=== PATIENT | male | born 1955 | race Caucasian/White ===

== ENCOUNTER 2016-06-15 08:11 | Day surgery (SDC) | payer BC, OTHER ==
--- NOTE | 2016-06-14 14:15 | HP ---
ADMITTING HISTORY AND PHYSICAL: DATE OF ADMISSION: 06/15/16 ADMITTING DIAGNOSES: 1. Bladder lesion. 2. Hematuria. 3. History of superficial bladder cancer. PLANNED PROCEDURE: Transurethral resection of bladder lesion, possible left stent insertion. SURGEON: Dr. Edmondson. ADMITTING HISTORY AND PHYSICAL: Osmin Randall is a 60-year-old gentleman with a longstanding smoking history and a history of superficial transitional cell carcinoma first diagnosed in 2008. Recent cystoscopy revealed a 2 to 3 cm area in the junction of the floor and posterior wall of the bladder with raised, irregular, hyperemic mucosa. The right orifice was visualized and was close to the bladder neck. I could not visualize the left orifice at the time of office cystoscopy. PAST MEDICAL HISTORY: Significant for: 1. Diabetes mellitus. 2. Esophageal reflux. 3. High triglycerides. 4. Hypertension. 5. History of pancreatitis due to alcohol abuse. 6. Sleep apnea. 7. Superficial bladder cancer. MEDICATIONS ON ADMISSION: 1. Amlodipine 10 mg a day. 2. Aspirin 81 mg a day. 3. Clonidine 0.1 mg daily. 4. Nexium 40 mg daily. 5. TriCor 145 mg daily. 6. Hydrochlorothiazide 25 mg daily. 7. Losartan potassium 100 mg daily. 8. Metformin 500 mg q.a.m. and 1000 mg q.p.m. 9. Metoprolol 100 mg twice a day. 10. Zocor 20 mg daily. ALLERGIES: No known drug allergies. PHYSICAL EXAMINATION GENERAL: Reveals a pleasant, overweight gentleman. VITAL SIGNS: Blood pressure is 140/80, pulse 77 per minute, oxygen saturation 95% on room air. LUNGS: Clear bilaterally. CARDIOVASCULAR EXAM: Regular rate and rhythm. S1, S2. ABDOMEN: Soft without masses. IMPRESSION: A 60-year-old former longtime smoker with a history of superficial bladder cancer who is being brought in for transurethral resection of bladder lesion and possible left stent insertion. CC: Dr. Clark; Dr. Elver Edmondson * [id number]/[facility] #: [id number] [facility]
[~2016-06-15 08:11] MED LIST: Buffered Lidocaine 1% SYR 3ML* 3 ML/SYR SYRINGE INTRADERM ONE; NS 0.9% 1000 ML* 1,000 ML IV SCH; cefTRIAXone(*) 2 GM ADDV.VIAL IVPB ONE
[2016-06-15] MEDS ORDERED: DiMENhydriNATE IV* 50 MG/ML VIAL IV PUSH PRN (08:47)
[2016-06-15] MEDS ORDERED: Ondansetron INJ* 2 MG/ML VIAL IV PRN (08:47)
[2016-06-15] MEDS ORDERED: Acetaminophen TAB* 325 MG PO PRN (08:47)
[2016-06-15] MEDS ORDERED: fentaNYL* 50 MCG/ML 2 ML VIAL (100 MCG VIAL) IV PRN (08:47)
[2016-06-15] MEDS ORDERED: PROCHLORPERAZINE INJ 5 MG/ML 2 ML VIAL IV PRN (08:47)
[2016-06-15] MEDS ORDERED: Famotidine IV* 10 MG/ML 2 ML (20 mg) ONE (09:13)
[2016-06-15] MEDS ORDERED: Midazolam* 1 MG/ML 2 ML VIAL (2 MG) ONE ×2 (09:13→10:16)
[2016-06-15] MEDS ORDERED: fentaNYL* 50 MCG/ML 2 ML VIAL (100 MCG VIAL) ONE (09:13)
[2016-06-15] MEDS ORDERED: Iohexol 180 (CONTRAST) 10 ML SDV IV ONE (10:21)
--- NOTE | 2016-06-15 11:36 | RAD ---
INDICATION: Stent placement COMPARISONS: July 13, 2011 TECHNIQUE: Fluoroscopy was provided for a retrograde pyelogram and stent placement. Total fluoroscopy time is: 19 seconds FINDINGS: Contrast is noted within the renal collecting system. A ureteral stent is noted IMPRESSION: FLUOROSCOPY WAS PROVIDED FOR A RETROGRADE PYELOGRAM AND STENT PLACEMENT CPT II Codes: 6045F
[2016-06-15 11:40] VITALS: BP 159/72
--- NOTE | 2016-06-15 16:52 | OP ---
AMENDED REPORT TO CORRECT ACCOUNT NUMBER DATE OF OPERATION: 06/15/16 - SDS DATE OF : [birth year] - AGE: 60 years, Male. SURGEON: Elver Edmondson MD ANESTHESIOLOGIST: Dr. Cooper ANESTHESIA: Spinal. PRE-OP DIAGNOSES: 1. Bladder lesion. 2. History of superficial bladder cancer. POST-OP DIAGNOSES: 1. Bladder lesion. 2. History of superficial bladder cancer. OPERATIVE PROCEDURES: 1. Cystoscopy. 2. Transurethral resection and fulguration of bladder lesion (approximately 2 to 3 cm). 3. Left retrograde pyelogram and left stent insertion. COMPLICATIONS: None. STENT USED: A 6-Portuguese, stent left ureter. INDICATIONS: Osmin Randall is a 60-year-old longstanding smoker with history of recurrent superficial bladder cancer. He was recently noted to have the above- mentioned findings and he is now being brought in for further evaluation and management. OPERATIVE FINDINGS: Raised, irregular, hyperemic mucosa floor of bladder close to left side of trigone. POSTOPERATIVE CONDITION: Stable. DESCRIPTION OF PROCEDURE: After induction of spinal anesthesia, the patient was placed in dorsal lithotomy position. Sequential compression devices were in place and functioning. Initial cystoscopy revealed a mild stricture in the penile urethra, mildly enlarged prostate. The bladder was examined and was distorted from previous resection. The orifices are fairly close to the bladder neck and especially the left orifice. In the floor of the bladder, the mucosa was raised and hyperemic especially towards the left side of the trigone. Left retrograde pyelogram was normal with no obstruction or filling defects noted and a 6-Portuguese stent was positioned under fluoroscopy. Mechanical Commissioning Engineer biopsies were obtained and sent for histopathology. Next, the resectoscope was introduced and all of the normal-appearing area was carefully resected. Hemostasis was secured using the coagulating current and 18-Portuguese Jolly was placed for temporary bladder drainage. The patient tolerated the procedure satisfactorily and was transferred back to the recovery area in stable condition. [id number]/[facility] #: [id number] [facility]ITALGrab[facility]
== END 2016-06-15 12:11 | disposition home or self-care (01) ==
LOC: OR 08:11
PROVIDERS: ATTEND Urology
DX: N32.9 Bladder disorder, unspecified (principal); Z85.51 Personal history of malignant neoplasm of bladder; R31.9 Hematuria, unspecified; Z72.0 Tobacco use; E11.9 Type 2 diabetes mellitus without complications; Z79.84 Long term (current) use of oral hypoglycemic drugs; I10 Essential (primary) hypertension; G47.33 Obstructive sleep apnea (adult) (pediatric)
CPT/HCPCS: 74420; 88305; C1876; J0696; J2250; J3010

== ENCOUNTER 2017-10-09 20:44 | Emergency (ER) | payer BC, OTHER ==
[2017-10-09] MEDS ORDERED: Ondansetron INJ* 2 MG/ML VIAL IV ONE (21:26)
[2017-10-09] MEDS ORDERED: Morphine INJ** 4 MG/ML 1 ML CARPUJECT IV ONE ×2 (21:26→22:18)
[2017-10-09] MEDS ORDERED: Morphine INJ* 2 MG/ML 1 ML SYRINGE (TWO MG - NEW SYRINGE VERSION) ONE (21:33)
[2017-10-09 21:47] LABS: ABS Basophils 0 10^3/ul (0-0.2); ABS Eosinophils 0.1 10^3/ul (0-0.6); ABS Monocytes 0.9 10^3/ul (0-0.8); ABS Neutrophils 4.4 10^3/ul (1.5-7.7); ABS Nucleated RBC 0 10^3/ul; Eosinophil % 0.9 % (0-6); Hematocrit 42 % (42-52); Hemoglobin 14.7 g/dl (14.0-18.0); Lymphocyte % 15.4 % (25-47); Mean Corpuscular HGB Conc 35 g/dl (31-36); Mean Corpuscular Hemoglobin 36 pg (27-31); Mean Corpuscular Volume 102 fL (80-94); Mean Platelet Volume 6.8 um3 (7.4-10.4); Nucleated Red Blood Cells % 0; Platelet Count 302 10^3/ul (150-450); Red Blood Count 4.09 10^6/ul (4.00-5.40); Red Cell Distribution Width 14 % (10.5-15); White Blood Count 6.4 10^3/ul (3.5-10.8)
[2017-10-09 22:00] LABS: EGFR Non-African American 153.7 (>60)
[2017-10-09] MEDS ORDERED: Iodixanol* (CONTRAST) 320 MG/ML 100 ML SDV IV ONE (22:19)
--- NOTE | 2017-10-09 23:03 | ED ---
Adult Trauma - HPI Summary HPI Summary: 62-year-old male presents with left-sided rib and abdominal pain since yesterday. He states he has been a mechanical fall where he tripped onto a wood stove. He denies any loss consciousness. He denies any no vomiting. No neck pain. No blood in his stool. He is on a daily aspirin. He states that pain is greatest when he takes deep breath. He states he has history of high blood pressure. He denies any headache or dizziness at this time. Denies any left hip pain. No bruising noted. He states his pain is constant. pain is 10 out of 10. He states he did cough yesterday and felt a pop in his ribs. he has a smoking history. - History of Current Complaint Chief Complaint: EDGeneral Stated Complaint: FALL/ WHOLE LEFT SIDE PAIN Time Seen by Provider: 10/09/17 21:18 Pain Intensity: 10 - Allergy/Home Medications Allergies/Adverse Reactions: Allergies Allergy/AdvReac Type Severity Reaction Status Date / Time No Known Allergies Allergy Verified 10/09/17 20:49 PMH/Surg Hx/FS Hx/Imm Hx Endocrine/Hematology History: Reports: Hx Diabetes - TYPE II ON ORAL MEDICATION FOR Cardiovascular History: Reports: Hx Coronary Artery Disease - CHOLESTEROL CONTROL WITH MEDS, Hx Hypertension - ON MEDICATION FOR Respiratory History: Reports: Hx Sleep Apnea GI History: Reports: Hx Gastroesophageal Reflux Disease - ON MEDICATION FOR Comment Only: Other GI Disorders - BLADDER TUMOR RESECTION History: Denies: Hx Renal Disease Musculoskeletal History: Reports: Hx Arthritis - BILATERAL HANDS, LOWER BACK Sensory History: Reports: Hx Cataracts - STARTED IN RIGHT EYE, Hx Contacts or Glasses - READING GLASSES Denies: Hx Hearing Aid Opthamlomology History: Reports: Hx Cataracts - STARTED IN RIGHT EYE, Hx Contacts or Glasses - READING GLASSES - Cancer History Hx Chemotherapy: Yes - Surgical History Surgery Procedure, Year, and Place: 1990 LOWER BACK SURGERY REMOVAL OF CYST, [employer]. 1993 LEFT CARPAL TUNNEL RELEASE. 1997 RIGHT SHOULDER ROTATOR CUFF REPAIR. [id number] SEVERAL CYSTOSCOPIES WITH TURBT, [facility] Hx Anesthesia Reactions: No Infectious Disease History: No Infectious Disease History: Denies: Traveled Outside the [place] in Last 30 Days - Social History Alcohol Use: Daily Alcohol Amount: 5-6 PER DAY- BEER Substance Use Type: Reports: None Smoking Status (MU): Former Smoker Amount Used/How Often: PIPE, 1/2 PPD OF SMALL CIGARS X 18 YEARS, no cigarettes Length of Time of Smoking/Using Tobacco: 20-30 YEARS Have You Smoked in the Last Year: No Review of Systems Negative: Fever Positive: Chest Pain - wall Positive: Shortness Of Breath. Negative: Cough Positive: Abdominal Pain All Other Systems Reviewed And Are Negative: Yes Physical Exam Triage Information Reviewed: Yes Vital Signs On Initial Exam: Initial Vitals Temp Pulse Resp BP Pulse Ox 97.4 F 74 18 210/112 96 10/09/17 20:46 10/09/17 20:46 10/09/17 20:46 10/09/17 20:46 10/09/17 20:46 Vital Signs Reviewed: Yes Appearance: Positive: Well-Appearing Skin: Positive: Warm, Dry Head/Face: Positive: Normal Head/Face Inspection Eyes: Positive: Normal, Conjunctiva Clear ENT: Positive: Pharynx normal Respiratory/Lung Sounds: Positive: Clear to Auscultation, Breath Sounds Present , Other - tenderness left ribs Cardiovascular: Positive: Normal, RRR Abdomen Description: Positive: Other: - tendenress left flank and LUQ Bowel Sounds: Positive: Present Musculoskeletal: Positive: Normal Neurological: Positive: Normal Psychiatric: Positive: Normal Diagnostics - Vital Signs Vital Signs Temp Pulse Resp BP Pulse Ox 10/09/17 22:23 18 10/09/17 22:17 206/126 10/09/17 22:12 198/94 10/09/17 22:10 196/112 10/09/17 21:47 200/110 10/09/17 21:37 18 10/09/17 21:20 73 96 10/09/17 21:18 73 187/117 96 10/09/17 20:46 97.4 F 74 18 210/112 96 - Laboratory Lab Results: Lab Results 10/09/17 10/09/17 Range/Units 21:34 21:34 WBC 6.4 (3.5-10.8) 10^3/ul RBC 4.09 (4.00-5.40) 10^6/ul Hgb 14.7 (14.0-18.0) g/dl Hct 42 (42-52) % MCV 102 H (80-94) fL MCH 36 H (27-31) pg MCHC 35 (31-36) g/dl RDW 14 (10.5-15) % Plt Count 302 (150-450) 10^3/ul MPV 6.8 L (7.4-10.4) um3 Neut % (Auto) 69.2 (38-83) % Lymph % (Auto) 15.4 L (25-47) % [place] % (Auto) 14.3 H (0-7) % Eos % (Auto) 0.9 (0-6) % Baso % (Auto) 0.2 (0-2) % Absolute Neuts (auto) 4.4 (1.5-7.7) 10^3/ul Absolute Lymphs (auto) 1.0 (1.0-4.8) 10^3/ul Absolute Monos (auto) 0.9 H (0-0.8) 10^3/ul Absolute Eos (auto) 0.1 (0-0.6) 10^3/ul Absolute Basos (auto) 0 (0-0.2) 10^3/ul Absolute Nucleated RBC 0 10^3/ul Nucleated RBC % 0 Sodium 127 L (135-145) mmol/L Potassium 3.6 (3.5-5.0) mmol/L Chloride 95 L (101-111) mmol/L Carbon Dioxide 23 (22-32) mmol/L Anion Gap 9 (2-11) mmol/L BUN 8 (6-24) mg/dL Creatinine 0.54 L (0.67-1.17) mg/dL Est GFR ( Amer) 185.9 (>60) Est GFR (Non-Af Amer) 153.7 (>60) BUN/Creatinine Ratio 14.8 (8-20) Glucose 113 H (70-100) mg/dL Calcium 8.9 (8.6-10.3) mg/dL Total Bilirubin 0.50 (0.2-1.0) mg/dL AST 20 (13-39) U/L ALT 16 (7-52) U/L Alkaline Phosphatase 34 (34-104) U/L Total Protein 7.3 (6.4-8.9) g/dL Albumin 3.9 (3.2-5.2) g/dL Globulin 3.4 (2-4) g/dL Albumin/Globulin Ratio 1.1 (1-3) Result Diagrams: 10/09/17 21:34 10/09/17 21:34 Lab Statement: Any lab studies that have been ordered have been reviewed, and results considered in the medical decision making process. - CT chest, abd CT Interpretation: Positive (See Comments) - 1. There is a right lower lobe mass lesion in the azygoesophageal recess measuring 3.7 x 3.4 x 3.4 cm. Differential diagnosis includes pulmonary neoplasm or atypical infection. May be further characterize with nuclear medicine PET imaging or sampled via percutaneous biopsy. 2. There is acute fracture involving the left eighth rib posterolateral aspect. 3. There is mild peripheral opacity in the left lower lobe which may be due to mild pulmonary contusion CT Interpretation Completed By: Radiologist Re-Evaluation - Re-Evaluation First Eval Re-Evaluation Time: 00:40 Change: Improved Comment: feeling better, but pain still persent. blood pressure better Second Eval Re-Evaluation Time: 01:20 Change: Improved Comment: pain , better discused results, understands importance of oncology follow up Adult Trauma Course/Dx - Course Course Of Treatment: 62-year-old male presents with left-sided rib and abdominal pain since yesterday. He states he has been a mechanical fall where he tripped onto a wood stove. He denies any loss consciousness. He denies any no vomiting. No neck pain. No blood in his stool. He is on a daily aspirin. He states that pain is greatest when he takes deep breath. He states he has history of high blood pressure. He denies any headache or dizziness at this time. Denies any left hip pain. No bruising noted. He states his pain is constant. pain is 10 out of 10. He states he did cough yesterday and felt a pop in his ribs. On exam has tenderness over left ribs and left abdomen. The patient's blood pressure as high. he took his blood pressure meds but states likely due to the pain. Gave pain medication and feeling better. blood pressure came down while in ED and can follow up with primary about such. CT shows right lung mass. 8th rib fracture and possible pulmonary contusion. discussed with dr andrade can send home with follow up with oncology and pain medication. gave incentive spirometry and told if develops any signs of pnuemonia to return to ED. patient understand and agrees with plan. - Diagnoses Differential Diagnosis/HQI/PQRI: Positive: Abrasion(s), Contusion(s), Fracture, Hematoma(s) Provider Diagnoses: Fall, Rib fracture, Lung mass, Hypertension Discharge - Sign-Out/Discharge Documenting (check all that apply): Patient Departure - Discharge Plan Condition: Good Disposition: HOME Prescriptions: oxyCODONE/Acetamin 5/325 MG* [Percocet 5/325 TAB*] 1 tab PO Q6H PRN #20 tab MDD 4 PRN Reason: Pain Patient Education Materials: Rib Fracture (ED) Referrals: Eleonora Clark MD [Primary Care Provider] - Garcia Stephens MD [Medical Doctor] - Additional Instructions: Take deep breath throughout the day Take Ibuprofen or Tylenol for pain every 6 hours, use pain medication every 6 hours for breakthrough pain Follow up with primary care physician within 5 days Follow up with oncology about lung mass Return to ED if develop new productive cough, fever, worsening shortness of breath or any new or worsening symptoms - Billing Disposition and Condition Condition: GOOD Disposition: Home
[2017-10-09] MEDS ORDERED: cloNIDine TAB* 0.1 MG PO ONE (23:04)
--- NOTE | 2017-10-10 00:33 | RAD ---
EXAM: CT Chest With Intravenous Contrast CLINICAL HISTORY: 62 years old, male; Pain and injury or trauma; Fall; Initial encounter; Bleeding/hemorrhage and blunt and fracture, traumatic; Luq; Generalized abdominal region; Other: Left rib cage level of breast; Blunt trauma (contusions or hematomas); Chest wall pain; Injury date: ; Injury details: Fell against a stove; Additional info: Left sided rib and abd pain, fall TECHNIQUE: Axial computed tomography images of the chest with intravenous contrast. All CT scans at this facility use at least one of these dose optimization techniques: automated exposure control; mA and/or kV adjustment per patient size (includes targeted exams where dose is matched to clinical indication); or iterative reconstruction. Coronal and sagittal reformatted images were created and reviewed. CONTRAST: 125 mL of VISIPAQUE 350 administered intravenously. COMPARISON: No relevant prior studies available. FINDINGS: Lungs: There is a right lower lobe mass lesion in the azygoesophageal recess measuring 3.7 x 3.4 x 3.4 cm. Differential diagnosis includes pulmonary neoplasm or atypical infection. May be further characterize with nuclear medicine PET imaging or sampled via percutaneous biopsy. There is mild peripheral opacity in the left lower lobe which may be due to mild pulmonary contusion. There is mild bibasilar atelectatic change or scarring. Pleural space: Unremarkable. No pneumothorax. No significant effusion. Heart: Unremarkable. No cardiomegaly. No significant pericardial effusion. Bones/joints: There is acute fracture involving the left eighth rib posterolateral aspect. There are multiple additional chronic bilateral rib fractures. No dislocation. Soft tissues: Unremarkable. Vasculature: Unremarkable. No thoracic aortic aneurysm. Lymph nodes: Unremarkable. No enlarged lymph nodes. Intraperitoneal space: Findings in the upper abdomen are described in the CT abdomen and pelvis dictation of the same day. Other findings: There are a few bilateral calcified granulomata. IMPRESSION: 1. There is a right lower lobe mass lesion in the azygoesophageal recess measuring 3.7 x 3.4 x 3.4 cm. Differential diagnosis includes pulmonary neoplasm or atypical infection. May be further characterize with nuclear medicine PET imaging or sampled via percutaneous biopsy. 2. There is acute fracture involving the left eighth rib posterolateral aspect. 3. There is mild peripheral opacity in the left lower lobe which may be due to mild pulmonary contusion. EXAM: CT Abdomen and Pelvis With Intravenous Contrast CLINICAL HISTORY: 62 years old, male; Pain and injury or trauma; Fall; Initial encounter; Bleeding/hemorrhage and blunt and fracture, traumatic; Luq; Generalized abdominal region; Other: Left rib cage level of breast; Blunt trauma (contusions or hematomas); Chest wall pain; Injury date: ; Injury details: Fell against a stove; Additional info: Left sided rib and abd pain, fall TECHNIQUE: Axial computed tomography images of the abdomen and pelvis with intravenous contrast. All CT scans at this facility use at least one of these dose optimization techniques: automated exposure control; mA and/or kV adjustment per patient size (includes targeted exams where dose is matched to clinical indication); or iterative reconstruction. Coronal and sagittal reformatted images were created and reviewed. CONTRAST: 125 mL of VISIPAQUE 350 administered intravenously. 125 mL of VISIPAQUE 350 administered intravenously. COMPARISON: DX - CXR CHEST 2 VWS 12/05/2010 6:56 PM FINDINGS: Lung bases: Unremarkable. No mass. No consolidation. ABDOMEN: Liver: There is mild hepatomegaly. Gallbladder and bile ducts: Unremarkable. No calcified stones. No ductal dilation. Pancreas: Unremarkable. No mass. No ductal dilation. Spleen: Unremarkable. No splenomegaly. Adrenals: Unremarkable. No mass. Kidneys and ureters: There is a simple cyst of the left kidney measuring 4.7 cm. No hydronephrosis. Stomach and bowel: Unremarkable. No obstruction. No mucosal thickening. PELVIS: Appendix: The appendix is unremarkable and seen best on axial image 46 of series 3. Bladder: Urinary bladder is distended and extends up into the mid abdomen. Reproductive: There is moderate right scrotal hydrocele. There are prostate gland calcifications. ABDOMEN and PELVIS: Intraperitoneal space: Unremarkable. No free air. No significant fluid collection. Bones/joints: There is diffuse osteopenia. There are degenerative changes of the spine. There are chronic bilateral L5 pars interarticularis fractures and there is grade 1/2 anterolisthesis at L5-S1. No dislocation. Soft tissues: Unremarkable. Vasculature: There are atherosclerotic aortic and iliac and femoral artery calcifications and No abdominal aortic aneurysm. Lymph nodes: Unremarkable. No enlarged lymph nodes. Other findings: Findings in the lower thorax are described on the CT chest dictation of the same day. IMPRESSION: 1. There is moderate right scrotal hydrocele. 2. No acute traumatic CT pathology the abdomen or pelvis.
[2017-10-10] MEDS ORDERED: HYDROmorphone INJ* 2 MG/ML CARPUJECT SYRINGE IV SLOW PU ONE (01:03)
[2017-10-10 01:39] VITALS: BP 170/90
== END 2017-10-10 01:38 | disposition home or self-care (01) ==
LOC: ED 20:44
DX: S22.39XA Fracture of one rib, unspecified side, initial encounter for closed fracture (principal); R91.8 Other nonspecific abnormal finding of lung field; R07.89 Other chest pain; I10 Essential (primary) hypertension; R06.02 Shortness of breath; R10.9 Unspecified abdominal pain; Z87.891 Personal history of nicotine dependence; W19.XXXA Unspecified fall, initial encounter; Y92.9 Unspecified place or not applicable
CPT/HCPCS: 36415; 71260; 74177; 80053; 85025; 96374; 96375; 99283; A9270-GY; J1170; J2270; J2405; Q9967

== ENCOUNTER 2017-11-22 11:13 | Day surgery (SDC) | payer BC ==
[~2017-11-22 11:13] MED LIST changes: +Buffered Lidocaine 0.9% SYRIN* 5 ML/SYR SYRINGE INTRADERM ONE; -Buffered Lidocaine 1% SYR 3ML* 3 ML/SYR SYRINGE INTRADERM ONE; +Famotidine IV* 10 MG/ML 2 ML (20 mg) IV ONE; -NS 0.9% 1000 ML* 1,000 ML IV SCH; -cefTRIAXone(*) 2 GM ADDV.VIAL IVPB ONE
[2017-11-22] MEDS ORDERED: Buffered Lidocaine 0.9% SYRIN* 5 ML/SYR SYRINGE ONE (11:21)
[2017-11-22] MEDS ORDERED: Famotidine IV* 10 MG/ML 2 ML (20 mg) ONE (11:21)
[2017-11-22] MEDS ORDERED: Midazolam* 1 MG/ML 2 ML VIAL (2 MG) ONE (11:47)
[2017-11-22] MEDS ORDERED: fentaNYL* 50 MCG/ML 2 ML VIAL (100 MCG VIAL) ONE (11:47)
[2017-11-22] MEDS ORDERED: Lidocaine 2% PF * 5 ML VIAL ONE (11:49)
[2017-11-22] MEDS ORDERED: Levalbuterol 1.25MG/0.5ML NEB ONE ×2 (12:02→14:56)
[2017-11-22] MEDS ORDERED: Levalbuterol 1.25MG/0.5ML NEB INH ONE (12:05)
[2017-11-22] MEDS ORDERED: Succinylcholine* 20 MG/ML 10 ML VIAL ONE (13:21)
[2017-11-22] MEDS ORDERED: Metoclopramide IV* 5 MG/ML 2 ML VIAL ONE (13:21)
[2017-11-22] MEDS ORDERED: Ondansetron INJ* 2 MG/ML VIAL ONE (13:21)
[2017-11-22] MEDS ORDERED: Propofol* 10 MG/ML 20 ML BTL IV PUSH ONE (13:21)
[2017-11-22] MEDS ORDERED: Levalbuterol 1.25MG/0.5ML NEB INH PRN (13:22)
[2017-11-22] MEDS ORDERED: PROCHLORPERAZINE INJ 5 MG/ML 2 ML VIAL IV PRN (13:22)
[2017-11-22] MEDS ORDERED: DiMENhydriNATE IV* 50 MG/ML VIAL IV PUSH PRN (13:22)
[2017-11-22] MEDS ORDERED: Naloxone* 0.4 MG/ML 1 ML VIAL IV PRN (13:22)
[2017-11-22] MEDS ORDERED: Acetaminophen TAB* 325 MG ONE (14:23)
[2017-11-22 15:29] VITALS: BP 139/73
--- NOTE | 2017-11-23 10:49 | PRO ---
BRONCHOSCOPY REPORT: DATE OF PROCEDURE: 11/22/17 PROCEDURE PERFORMED: Bronchoscopy with endobronchial ultrasound-guided fine needle aspiration of station 7, station L4 lymph node, endobronchial biopsy from endobronchial lesion in the right lower lobe. PRE-PROCEDURAL DIAGNOSIS: Lung mass. POST-PROCEDURAL DIAGNOSIS: Lung cancer. ANESTHESIA: General anesthesia. ANESTHESIOLOGIST: Dr. Caro. DESCRIPTION OF PROCEDURE: Informed consent was obtained from the patient prior to the procedure after all the risks and benefits were thoroughly explained. The patient recently was noted to have a lung mass on CT scan. Bronchoscopy was scheduled for further evaluation. Appropriate time-out was performed and agreed on by attending staff prior to the procedure. The patient was intubated with a size 8.5 endotracheal tube. The patient had Kamron Hugger placed and SCDs placed during the procedure. A flexible Olympus bronchoscope was then inserted through the ET tube for airway inspection. ET tube positioning was confirmed to be 2 cm above the level of kvng. Bronchoscope was then advanced into the right bronchial tree which was inspected. The patient noted to have narrowing of right lower lobe bronchus likely from extrinsic compression. The patient also noted to have a mucosal lesion at the level of takeoff of right lower lobe bronchus. Bronchoscope was then advanced into the left bronchial tree which was inspected. Minimal secretions were noted and were suctioned. No endobrachial lesions were noted. Bronchoscope was then withdrawn and EBUS bronchoscope was inserted. Station 7 lymph node was significantly enlarged and was inseparable from the mass. Lymph node was accessed with 6 passes. Rapid on -site evaluation revealed malignant cells. Rest of the specimen was placed in formalin. Air dry slides are also prepared. Station L4 was minimally enlarged and was accessed with 2 passes. Rapid on-site evaluation revealed benign lymphatic tissue. No other lymph nodes on left side were enlarged. R4 was not noted to be enlarged. No hilar nodes were seen. EBUS bronchoscope was then withdrawn and Olympus bronchoscope was inserted. Endobronchial biopsies were obtained from the mucosal lesion with 4 passes. Specimen was placed in formalin. The patient tolerated the procedure well. The patient was extubated and seen in Recovery in optimal condition. [id number]/[facility] #: [id number] [facility]
== END 2017-11-22 15:30 | disposition home or self-care (01) ==
LOC: OR 11:13
PROVIDERS: ATTEND Internal Medicine
DX: C34.31 Malignant neoplasm of lower lobe, right bronchus or lung (principal); C77.1 Secondary and unspecified malignant neoplasm of intrathoracic lymph nodes; G47.33 Obstructive sleep apnea (adult) (pediatric); I10 Essential (primary) hypertension; E11.9 Type 2 diabetes mellitus without complications; Z79.84 Long term (current) use of oral hypoglycemic drugs; Z72.0 Tobacco use; E66.09 Other obesity due to excess calories
CPT/HCPCS: 81445; 88172; 88173; 88177; 88305; 88341; 88342; 88360; A9270-GY; J0330; J2250; J2405; J2704; J2765; J3010

== ENCOUNTER 2018-08-23 20:57 | Emergency (ER) | payer BC ==
[2018-08-23 21:07] VITALS: BP 113/74
== END 2018-08-23 21:40 | disposition left against medical advice (07) ==
LOC: ED 20:57
DX: Z53.21 Procedure and treatment not carried out due to patient leaving prior to being seen by health care provider (principal)
CPT/HCPCS: 99281

== ENCOUNTER 2018-09-05 06:19 | Inpatient (IN) | payer BC ==
[2018-09-05 06:56] LABS: ABS Lymphocytes 0.5 10^3/ul (1.0-4.8); ABS Monocytes 0.7 10^3/ul (0-0.8); ABS Neutrophils 4.7 10^3/ul (1.5-7.7); Eosinophil % 0.2 %; Hematocrit 32 % (42-52); Hemoglobin 11.3 g/dL (14.0-18.0); Lymphocyte % 7.9 %; Mean Corpuscular HGB Conc 35 g/dL (31-36); Mean Corpuscular Hemoglobin 36 pg (27-31); Mean Corpuscular Volume 101 fL (80-94); Mean Platelet Volume 7.2 fL (7.4-10.4); Nucleated Red Blood Cells % 0.3; Platelet Count 112 10^3/uL (150-450); Red Blood Count 3.17 10^6 /uL (4.18-5.48); Red Cell Distribution Width 16 % (10-15); White Blood Count 5.9 10^3/uL (3.5-10.8)
[2018-09-05] MEDS ORDERED: Dexamethasone IV* 4 MG/ML 1 ML (4 MG) IV SLOW PU ONE (07:06)
[2018-09-05 07:14] LABS: INR 1.19 (0.82-1.09)
[2018-09-05 07:21] LABS: Albumin 3.6 g/dL (3.2-5.2); BUN/Creatinine Ratio 29.1 (8-20); Calcium 10.5 mg/dL (8.6-10.3); EGFR Non-African American 150.4 (>60); Globulin 3.7 g/dL (2-4); Potassium 3.8 mmol/L (3.5-5.0); Total Bilirubin 0.4 mg/dL (0.2-1.0); Total Protein 7.3 g/dL (6.4-8.9)
--- NOTE | 2018-09-05 08:04 | ED ---
Headache - HPI Summary HPI Summary: Patient is a 62-year-old male with history of brain CA, metastatic disease from lung CA, bladder CA presenting to the ED with and daughter with headache, worsening decline over the past week, confusion, dizziness and disorientation, frequent near falls and gait disturbance. - History Of Current Complaint Chief Complaint: EDNeurologicalDeficit Stated Complaint: HURTS ALL OVER PER PT Time Seen by Provider: 09/05/18 06:32 Hx Obtained From: Family/Chemist Assistant Hx From Patient Unobtainable Due To: Altered Mental Status Onset/Duration: Sudden Onset Timing: Constant Associated Signs And Symptoms: Dizziness - Allergies/Home Medications Allergies/Adverse Reactions: Allergies Allergy/AdvReac Type Severity Reaction Status Date / Time No Known Allergies Allergy Verified 09/05/18 06:30 Home Medications: Home Medications Dexamethasone TAB* [Decadron TAB*] 1 mg PO DAILY 09/05/18 [History Confirmed ] Oxycodone HCl 5 mg PO Q3H PRN 09/05/18 [History Confirmed 09/05/18] levETIRAcetam [Levetiracetam] 750 mg PO DAILY 09/05/18 [History Confirmed ] PMH/Surg Hx/FS Hx/Imm Hx Previously Healthy: Yes Endocrine/Hematology History: Reports: Hx Diabetes - TYPE II ON ORAL MEDICATION FOR Cardiovascular History: Reports: Hx Coronary Artery Disease - CHOLESTEROL CONTROL WITH MEDS, Hx Hypertension - ON MEDICATION FOR, Other Cardiovascular Problems/Disorders - CHOLESTEROL CONTROL WITH MEDS Denies: Hx Pacemaker/ICD Respiratory History: Reports: Hx Sleep Apnea, Other Respiratory Problems/ Disorders - Right Lung Mass, hx of pneumonia 3-4 years ago GI History: Reports: Hx Gastroesophageal Reflux Disease - ON MEDICATION Denies: Other GI Disorders History: Reports: Other Problems/Disorders - 2004-bladder cancer-followed by Dr Edmondson- multiple procedures Denies: Hx Renal Disease Musculoskeletal History: Reports: Hx Arthritis - BILATERAL HANDS, LOWER BACK, Other Musculoskeletal History - lumbar spine surgery 1990, 09/30 left fractured rib Sensory History: Reports: Hx Cataracts - Right cataract removed, Hx Contacts or Glasses - READING GLASSES Denies: Hx Hearing Aid Opthamlomology History: Reports: Hx Cataracts - Right cataract removed, Hx Contacts or Glasses - READING GLASSES Neurological History: Denies: Other Neuro Impairments/Disorders Psychiatric History: Denies: Hx Panic Disorder - Cancer History Cancer Type, Location and Year: bladder, lung Hx Chemotherapy: Yes - Surgical History Surgery Procedure, Year, and Place: 1990 LOWER BACK SURGERY REMOVAL OF CYST, [employer]. 1993 LEFT CARPAL TUNNEL RELEASE. 1997 RIGHT SHOULDER ROTATOR CUFF REPAIR. [phone] SEVERAL CYSTOSCOPIES WITH TURBT, [facility]. Right Cataract Extraction 03/02. SKIN CANCER REMOVED FROM NOSE Hx Anesthesia Reactions: No - Immunization History Hx Pertussis Vaccination: No Immunizations Up to Date: Yes Infectious Disease History: No Infectious Disease History: Denies: Traveled Outside the [place] in Last 30 Days - Social History Occupation: Unemployed Lives: Alone Alcohol Use: Daily Alcohol Amount: 6-8 light beers per day Hx Substance Use: No Substance Use Type: Reports: None Hx Tobacco Use: Yes Smoking Status (MU): Light Every Day Tobacco Smoker Type: Cigars Amount Used/How Often: 3-4 cigars per day-Hx PIPE,1/2 PPD OF SMALL CIGARS X 18 YEARS,no cigarettes Length of Time of Smoking/Using Tobacco: 20-30 YEARS Have You Smoked in the Last Year: Yes Review of Systems Negative: Fever, Chills, Fatigue, Skin Diaphoresis Negative: Palpitations, Chest Pain Negative: Shortness Of Breath, Cough Negative: Rash, Bruising Neurological: Other - confusion/gait disturbance Positive: Headache Psychological: Normal All Other Systems Reviewed And Are Negative: Yes Physical Exam Vital Signs On Initial Exam: Initial Vitals Temp Pulse Resp BP Pulse Ox 98.2 F 71 16 158/81 96 09/05/18 06:21 09/05/18 06:21 09/05/18 06:21 09/05/18 06:21 09/05/18 06:21 Completion Of Physical Exam Limited Due To: Altered Mental Status - worse than baseline Appearance: Positive: Well-Appearing, Well-Nourished Skin: Positive: Warm, Skin Color Reflects Adequate Perfusion Head/Face: Positive: Normal Head/Face Inspection Eyes: Positive: EOMI, Conjunctiva Clear Neck: Positive: Supple, No Lymphadenopathy Respiratory/Lung Sounds: Positive: Clear to Auscultation, Breath Sounds Present Cardiovascular: Positive: RRR, Pulses are Symmetrical in both Upper and Lower Extremities Musculoskeletal: Positive: Strength/ROM Intact Neurological: Positive: Other - not oriented to place or time, oriented to person; confused when asked simple questions and inappropriate responses Psychiatric: Positive: Patient Uncooperative for Exam - confused Diagnostics - Vital Signs Vital Signs Temp Pulse Resp BP Pulse Ox 09/05/18 07:16 96 09/05/18 07:13 65 5 96 09/05/18 06:37 11 09/05/18 06:35 15 141/83 09/05/18 06:34 12 164/80 09/05/18 06:21 98.2 F 71 16 158/81 96 - Laboratory Lab Results: Lab Results 09/05/18 09/05/18 09/05/18 Range/Units 06:50 06:50 06:50 WBC 5.9 (3.5-10.8) 10^3/uL RBC 3.17 L (4.18-5.48) 10^6 /uL Hgb 11.3 L (14.0-18.0) g/dL Hct 32 L (42-52) % MCV 101 H (80-94) fL MCH 36 H (27-31) pg MCHC 35 (31-36) g/dL RDW 16 H (10-15) % Plt Count 112 L (150-450) 10^3/uL MPV 7.2 L (7.4-10.4) fL Neut % (Auto) 79.8 % Lymph % (Auto) 7.9 % Anson % (Auto) 11.9 % Eos % (Auto) 0.2 % Baso % (Auto) 0.2 % Absolute Neuts (auto) 4.7 (1.5-7.7) 10^3/ul Absolute Lymphs (auto) 0.5 L (1.0-4.8) 10^3/ul Absolute Monos (auto) 0.7 (0-0.8) 10^3/ul Absolute Eos (auto) 0.0 (0-0.6) 10^3/ul Absolute Basos (auto) 0.0 (0-0.2) 10^3/ul Absolute Nucleated RBC 0.0 10^3/ul Nucleated RBC % 0.3 INR (Anticoag Therapy) 1.19 H (0.82-1.09) Sodium 133 L (135-145) mmol/L Potassium 3.8 (3.5-5.0) mmol/L Chloride 97 L (101-111) mmol/L Carbon Dioxide 26 (22-32) mmol/L Anion Gap 10 (2-11) mmol/L BUN 16 (6-24) mg/dL Creatinine 0.55 L (0.67-1.17) mg/dL Est GFR ( Amer) 182.0 (>60) Est GFR (Non-Af Amer) 150.4 (>60) BUN/Creatinine Ratio 29.1 H (8-20) Glucose 113 H (70-100) mg/dL Lactic Acid (0.5-2.0) mmol/L Calcium 10.5 H (8.6-10.3) mg/dL Total Bilirubin 0.40 (0.2-1.0) mg/dL AST 10 L (13-39) U/L ALT 19 (7-52) U/L Alkaline Phosphatase 68 (34-104) U/L Troponin I 0.00 (<0.04) ng/mL Total Protein 7.3 (6.4-8.9) g/dL Albumin 3.6 (3.2-5.2) g/dL Globulin 3.7 (2-4) g/dL Albumin/Globulin Ratio 1.0 (1-3) 09/05/18 Range/Units 06:50 WBC (3.5-10.8) 10^3/uL RBC (4.18-5.48) 10^6 /uL Hgb (14.0-18.0) g/dL Hct (42-52) % MCV (80-94) fL MCH (27-31) pg MCHC (31-36) g/dL RDW (10-15) % Plt Count (150-450) 10^3/uL MPV (7.4-10.4) fL Neut % (Auto) % Lymph % (Auto) % Anson % (Auto) % Eos % (Auto) % Baso % (Auto) % Absolute Neuts (auto) (1.5-7.7) 10^3/ul Absolute Lymphs (auto) (1.0-4.8) 10^3/ul Absolute Monos (auto) (0-0.8) 10^3/ul Absolute Eos (auto) (0-0.6) 10^3/ul Absolute Basos (auto) (0-0.2) 10^3/ul Absolute Nucleated RBC 10^3/ul Nucleated RBC % INR (Anticoag Therapy) (0.82-1.09) Sodium (135-145) mmol/L Potassium (3.5-5.0) mmol/L Chloride (101-111) mmol/L Carbon Dioxide (22-32) mmol/L Anion Gap (2-11) mmol/L BUN (6-24) mg/dL Creatinine (0.67-1.17) mg/dL Est GFR ( Amer) (>60) Est GFR (Non-Af Amer) (>60) BUN/Creatinine Ratio (8-20) Glucose (70-100) mg/dL Lactic Acid 1.3 (0.5-2.0) mmol/L Calcium (8.6-10.3) mg/dL Total Bilirubin (0.2-1.0) mg/dL AST (13-39) U/L ALT (7-52) U/L Alkaline Phosphatase (34-104) U/L Troponin I (<0.04) ng/mL Total Protein (6.4-8.9) g/dL Albumin (3.2-5.2) g/dL Globulin (2-4) g/dL Albumin/Globulin Ratio (1-3) Result Diagrams: 09/05/18 06:50 09/05/18 06:50 Lab Statement: Any lab studies that have been ordered have been reviewed, and results considered in the medical decision making process. Headache Course/Dx - Course Course Of Treatment: Patient is a 62-year-old male with history of brain CA, metastatic disease from lung CA, bladder CA presenting to the ED with and daughter with headache, worsening decline over the past week, confusion, dizziness and disorientation, frequent near falls and gait disturbance. Patient is evaluated for worsening confusion, disorientation, dizziness and frequent near-falls at home over the past week per family. Pt c/o severe FLOWERS. Patient was seen by Dr. Orozco yesterday, however no family member was with him during this appointment. He has received radiation 5 to the right shoulder for a shoulder mass since July. He is to be starting chemotherapy this Monday. Recent history includes gamma knife in [place] in early July. Patient is confused; however he tells me he has a severe headache. Patient providing inappropriate responses to questions, is very tangential and confused. He is unable to answer my questions appropriately and is responding with numbers when asked simple questions. Im 41 when asked if he has any pain. Similar presentation for automation control technician. Family states confusion and unable to get him to respond appropriately stating he has good moments and bad ones.. Labs obtained significant for: Sodium of 133 but otherwise fairly normal. Troponin 0.00. Brain CT: Mass in the posterior left temporal lobe with surrounding edema increased in size from the prior MRI study with mass effect as described. In addition there appears to be a new small second lesion in the posterior left parietal lobe. These findings can further be evaluated with an MRI of the brain with and without contrast. UA pending. Discussed case with Dr. Orozco at 7:50am who recommends admission and will have someone from team some see pt in ED. Patient is full code. Current medications include decadron 1mg, metformin , clonidine, Keppra, oxycodone, morphine, lidocaine patch and aspirin 81 mg. History includes type 2 diabetes, controlled and brain CA and lung CA with metastasis. Patient currently seeing Dr. Orozco and Dr. Greenfield. Decadron 10mg given for increased edema. - Diagnoses Differential Diagnosis/HQI/PQRI: Other - metastatic disease, new lesion, brain CA, edema Provider Diagnoses: Metastatic disease, Confusion Discharge - Sign-Out/Discharge Documenting (check all that apply): Patient Departure Patient Received Moderate/Deep Sedation with Procedure: No - Discharge Plan Condition: Fair Disposition: ADMITTED TO [facility] Referrals: Eleonora Clark MD [Primary Care Provider] - - Billing Disposition and Condition Condition: FAIR Disposition: Admitted to [facility]
[2018-09-05] MEDS ORDERED: oxyCODONE TAB* 5 MG TAB PO ONE (09:40)
[2018-09-05] MEDS ORDERED: Acetaminophen TAB* 325 MG PO ONE (09:42)
[2018-09-05] MEDS ORDERED: metFORMIN* 500 MG TAB PO SCH (11:00)
[2018-09-05 11:03] LABS: Urine Appearance Turbid; Urine Bacteria 2+ (Absent); Urine Bilirubin Negative (Negative); Urine Blood Negative (Negative); Urine Color Yellow; Urine Glucose Negative (Negative); Urine Ketones Negative (Negative); Urine Nitrite Positive (Negative); Urine Protein Negative (Negative); Urine Red Blood Cell Trace(0-2/hpf) (Absent); Urine Specific Gravity 1.012 (1.010-1.030); Urine Squamous Epithelial Cell Present (Absent); Urine Urobilinogen Negative (Negative); Urine White Blood Cell 3+(>20/hpf) (Absent)
[2018-09-05] MEDS ORDERED: Gadoteridol* (CONTRAST) 279.3 MG/ML 10 ML IV ONE (11:30)
[2018-09-05] MEDS: Enoxaparin(*) 40 MG/0.4 ML SYR SUBCUT SCH (12:49)
[2018-09-05] MEDS: Dexamethasone IV* 4 MG/ML 1 ML (4 MG) IV SLOW PU SCH ×2 (12:51→18:22)
[2018-09-05] MEDS: oxyCODONE TAB* 5 MG TAB PO PRN ×3 (12:52→22:41)
[2018-09-05] MEDS: Losartan TAB* 25 MG PO SCH (12:52)
[2018-09-05] MEDS: Metoprolol Tartrate TAB* 100 MG TAB PO SCH ×2 (12:53→22:44)
[2018-09-05] MEDS: amLODIPine TAB* 5 MG PO SCH (12:53)
[2018-09-05] MEDS: levETIRAcetam TAB* 500 MG PO SCH (12:53)
[2018-09-05] MEDS: Hydrochlorothiazide TAB* 25 MG PO SCH (12:54)
[2018-09-05] MEDS: Pantoprazole TAB * 40 MG TAB PO SCH (12:54)
[2018-09-05] MEDS ORDERED: Dextrose 50% VIAL 50 ml IV PUSH PRN (18:19)
[2018-09-05] MEDS: Insulin LISPRO* 1 UNITS UNIT SUBCUT SCH ×2 (18:33→22:46)
[2018-09-05] MEDS: cloNIDine TAB* 0.1 MG PO SCH (22:44)
[2018-09-05] MEDS: Atorvastatin* 10 MG TAB PO SCH (22:44)
[2018-09-05] MEDS: Lidocaine PATCH 5%* 1 PATCH TRANSDERM SCH (22:45)
--- NOTE | 2018-09-06 02:24 | HP ---
ADMISSION HISTORY AND PHYSICAL: DATE OF ADMISSION: 09/05/18 REASON FOR ADMISSION: Increased confusion with the word finding problems and progressive brain metastasis. HISTORY OF PRESENT ILLNESS: Osmin Randall is a 62-year-old male who in September of 2017 fell and struck his right ribs, with severe pain he presented to the emergency room. CT scan of the chest, abdomen, and pelvis revealed a 3.7 x 3.4 cm mass in the right lower lobe in the azygoesophageal recess, highly suspicious for malignancy. The patient under-went an EBUS with positive left lower lobe biopsy along with lymph node 7 being positive for squamous cell carcinoma. He was treated with concurrent carboplatin and Taxol and radiation therapy. He completed this in January and then two cycles of high dose carboplatin and Taxol every 3 weeks, finishing in March 2018. CT scan at that time revealed residual soft tissue density along the tracheoesophageal recess, however, this was markedly improved, but still present. Decision was made to treat him in the adjuvant setting with durvalumab every 2 weeks. In June 2018, the patient developed increasing confusion and other neurologic symptoms and was found in MRI scan to have a solitary brain metastasis. He was referred to [facility] and underwent resection in early July 2018 and subsequent gamma knife on 08/06/18 to this area of the solitary metastasis. Over the course in June and even somewhat before that the patient had severe pain in the right scapula. Review of imaging showed that in retrospect there was an abnormality in the right scapula consistent with metastatic disease. The patient underwent a course of radiation therapy to this area from 08/14/18 to 08/21/18. The pain in the shoulder was still severe even after taking this radiation therapy. He was seen in the office on 08/28/18 and decision at that time was make to obtain a CT scan of the chest, abdomen, and pelvis to restage the patient and was seen back the day prior to this admission to go over those results. The CT scan revealed the metastatic disease in the right scapula region, which was little changed despite the radiation therapy. In addition, there was an enlarging adrenal mass noted, now measuring approximately 3 to 4 cm in retrospect was present on the previous CT scan in June and they have not been present on films before that. The patient continued taking hydrocodone without major relief of pain in the shoulder. The patient was undergoing a Decadron taper following his gamma knife procedure and was down to 1 mg daily when seen in the office on 09/04/18. He was given a further slow taper at that point as he was also complaining in addition to the right shoulder pain, to increasing headaches. He denied at that time, any tingling, numbness, weakness , any vision problems, or any problems with speech. The patient's family reports that on 09/03/18 that he had eaten supper well, however, by yesterday, 09/04/18, his appetite was poor, not eating well, he had become much more confused, and at times lethargic, was having problems with speech. He was brought into the emergency room this morning and a CT scan of the brain was obtained. This revealed an area of abnormality at the site of the previous surgery and gamma knife, which was still present and with increased vasogenic edema surrounding it. Situation was discussed with the emergency room physician and the patient was given a bolus of Decadron of 10 mg IV. By the time, I saw the patient, the patient reported that he was doing somewhat better than he had been earlier before the bolus dose of extra Decadron. PAST MEDICAL HISTORY: Otherwise significant for underlying diabetes mellitus, hypertension, lumbar spine surgery in 1990, rotator cuff surgery in 1997, and carpal tunnel surgery in . 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 This was treated with a course of BCG. Regular cystoscopies with Dr. Edmondson, most recently in 2016 without significant pathology. Raised irregular hyperemic mucosa in the floor of the bladder wall close to trigone, treated with transurethral resection. Basal cell carcinoma at the tip of the nose with regular margins in 2016, diabetes mellitus for 6 to 7 years with relatively well controlled hemoglobin A1c, hypertension since age 17, no MIs or CVA, chronic back pain for many years , chronically using lidocaine patches. Obstructive sleep apnea using CPAP for the past 9 years. MEDICATIONS: 1. Decadron 1 mg daily. 2. Amlodipine 10 mg daily. 3. Carafate 4 times per day p.r.n. 4. Catapres 0.2 b.i.d. 5. Esomeprazole 40 mg daily. 6. Fenofibrate 145 mg daily. 7. Glucophage 500 mg b.i.d. 8. Hydrochlorothiazide 25 mg daily. 9. Keppra 750 mg b.i.d. 10. Lidocaine patch. 11. Losartan 100 mg daily. 12. Metoprolol 100 mg b.i.d. 13. Oxycodone 5 mg q.3 hours p.r.n. pain. 14. Simvastatin 20 mg at h.s. 15. Tylenol arthritis p.r.n. ALLERGIES: None. FAMILY HISTORY: Father at age 82, mother at 78, sister at 60. Five other siblings alive and well. Father with multiple different cancers, per the patient, unclear as to type. Sister, Anay Rausch of breast cancer at 58. SOCIAL HISTORY: The patient lives with his and other family members. He is retired from [employer]. He has been disabled by back pain. Cigarettes, pipe and cigars: No cigarettes for 40 years. Alcohol: Significant intake in the recent past. REVIEW OF SYSTEMS: Energy level had been diminished recently since the diagnosis of brain metastasis. He has been less active and walking less. No problems with balance until the last 48 hours. Headaches are significant as discussed above. No significant shortness of breath, chest pain or palpitations. No significant underlying GI or symptoms. Chronic back pain ongoing but not any worse. Severe pain in the right scapula. No significant bleeding or bruising. Review of systems, otherwise negative. PHYSICAL EXAMINATION GENERAL: A 62-year-old male in no acute distress, sitting comfortably in a chair in the emergency room. VITAL SIGNS: Blood pressure 127/71, pulse of 69, afebrile. HEENT: PERRL, EOMI. No erythema or exudates. No scleral icterus. No palpable cervical, supraclavicular or axillary adenopathy. LUNGS: Clear. HEART: Regular rate and rhythm without murmurs, rubs or gallops. ABDOMEN: Soft, nontender without any masses or organomegaly. EXTREMITIES: No clubbing, cyanosis or edema. BACK: Mild tenderness in the lower lumbar spine. Severe pain over the right scapula. NEUROLOGIC: The patient is speaking slowly and has some problems with word finding. He is not oriented completely. He does know that he is at the hospital. He was able to tell me that it is September 06, was only off by one day, but does not know the year and when I asked this question repeatedly says September 06. Cranial nerves III through XII are intact. Motor is 5/5 in the left arm and bilateral lower extremities. Right arm strength is diminished by severe pain in the shoulder on moving the arm. DIAGNOSTIC STUDIES/LAB DATA: CBC: White count 5900, H and H 32/11.3, platelet count 112,000. Chemistry studies: Sodium 133, potassium 3.8, bicarb 26, chloride 97, BUN 16, creatinine 0.55. Remainder of the chemistry studies unremarkable. Glucose is elevated at 113 and subsequently even higher after receiving extra doses of Decadron. IMPRESSION: A 62-year-old male with stage III non-small cell lung cancer, recently diagnosed with metastatic disease of the scapula as well as solitary brain metastasis, who now has evidence of abnormality on CT of the brain in the area of the previous resection and gamma knife. There was a question of a second lesion raised by Radiology, although my review with Radiology, I am not convinced that the second lesion is present on the CT scan. The current known mass is in the posterior left temporal region with increased surrounding vasogenic edema compared to prior MRI scan of July 2018. He has known progressive systemic disease and the plan has been to start him on Gemzar chemotherapy later this week. 1. His neurologic symptoms are dramatically worse than yesterday, mostly to the increased cerebral edema. MRI scan of the brain will be obtained. The patient will be started on high dose of Decadron and will receive 24 mg daily throughout the remainder of today and tomorrow. Situation will be discussed with radiation therapy as to whether there are any other local therapy options available for this. Situations discussed at length with the family who recognized that he has had rapidly progressive disease over the past several months and that he is doing much poorly on this basis. 2. Hyperglycemia/diabetes mellitus. It is expected that this will worsen when he is on high doses of Decadron, sliding scale insulin will be used in addition to maintaining him on his usual oral diabetic medications. 3. Hypertension, under good control. 4. Significant alcohol use. The patient needs to be watched carefully for potential withdrawal. 5. DVT prophylaxis with Lovenox. [id number]/[facility] #: [id number] [facility]
[2018-09-06] MEDS: oxyCODONE TAB* 5 MG TAB PO PRN ×2 (02:41→08:56)
[2018-09-06] MEDS: Dexamethasone IV* 4 MG/ML 1 ML (4 MG) IV SLOW PU SCH ×3 (03:35→18:09)
[2018-09-06] MEDS: Losartan TAB* 25 MG PO SCH (08:49)
[2018-09-06] MEDS: Metoprolol Tartrate TAB* 100 MG TAB PO SCH ×2 (08:50→20:18)
[2018-09-06] MEDS: levETIRAcetam TAB* 500 MG PO SCH (08:50)
[2018-09-06] MEDS: Insulin LISPRO* 1 UNITS UNIT SUBCUT SCH ×4 (08:50→20:38)
[2018-09-06] MEDS: Hydrochlorothiazide TAB* 25 MG PO SCH (08:50)
[2018-09-06] MEDS: amLODIPine TAB* 5 MG PO SCH (08:50)
[2018-09-06] MEDS: cloNIDine TAB* 0.1 MG PO SCH ×2 (08:50→20:16)
[2018-09-06] MEDS: Pantoprazole TAB * 40 MG TAB PO SCH (08:50)
[2018-09-06] MEDS: CMC:Fenofibrate(NF) 145 MG TAB PO SCH (09:04)
[2018-09-06 11:36] LABS: Body Fluid Source Cerebral Spinal
[2018-09-06 11:48] LABS: CSF Glucose 141 mg/dL (40-70)
[2018-09-06] MEDS: Enoxaparin(*) 40 MG/0.4 ML SYR SUBCUT SCH (12:23)
[2018-09-06] MEDS: Morphine INJ* 2 MG/ML 1 ML SYRINGE (TWO MG - NEW SYRINGE VERSION) IV PRN ×3 (12:23→20:19)
[2018-09-06 13:56] LABS: Body Fluid Mono 12 %
[2018-09-06] MEDS: Atorvastatin* 10 MG TAB PO SCH (20:17)
[2018-09-06] MEDS: Lidocaine PATCH 5%* 1 PATCH TRANSDERM SCH (20:19)
[2018-09-07] MEDS: Morphine INJ* 2 MG/ML 1 ML SYRINGE (TWO MG - NEW SYRINGE VERSION) IV PRN ×5 (00:28→21:44)
[2018-09-07] MEDS: Dexamethasone IV* 4 MG/ML 1 ML (4 MG) IV SLOW PU SCH ×3 (05:14→21:40)
[2018-09-07] MEDS: Metoprolol Tartrate TAB* 100 MG TAB PO SCH ×2 (07:34→21:35)
[2018-09-07] MEDS: Pantoprazole TAB * 40 MG TAB PO SCH (07:34)
[2018-09-07] MEDS: amLODIPine TAB* 5 MG PO SCH (07:34)
[2018-09-07] MEDS: cloNIDine TAB* 0.1 MG PO SCH ×2 (07:34→21:34)
[2018-09-07] MEDS: oxyCODONE TAB* 5 MG TAB PO PRN ×3 (07:35→19:55)
[2018-09-07] MEDS: Losartan TAB* 25 MG PO SCH (07:35)
[2018-09-07] MEDS: Hydrochlorothiazide TAB* 25 MG PO SCH (07:35)
[2018-09-07] MEDS: Insulin LISPRO* 1 UNITS UNIT SUBCUT SCH ×4 (07:35→21:38)
[2018-09-07] MEDS: levETIRAcetam TAB* 500 MG PO SCH (07:36)
[2018-09-07] MEDS: CMC:Fenofibrate(NF) 145 MG TAB PO SCH (07:44)
[2018-09-07] MEDS: Enoxaparin(*) 40 MG/0.4 ML SYR SUBCUT SCH (11:02)
[2018-09-07] MEDS: Ciprofloxacin TAB* 250 MG PO SCH ×2 (11:49→21:34)
[2018-09-07] MEDS: LORazepam TAB(*) 0.5 MG PO PRN (14:00)
[2018-09-07] MEDS: metFORMIN* 500 MG TAB PO SCH (16:57)
[2018-09-07] MEDS: Atorvastatin* 10 MG TAB PO SCH (19:54)
[2018-09-07] MEDS: Lidocaine PATCH 5%* 1 PATCH TRANSDERM SCH (21:35)
[2018-09-08] MEDS: Morphine INJ* 2 MG/ML 1 ML SYRINGE (TWO MG - NEW SYRINGE VERSION) IV PRN ×5 (04:37→17:59)
[2018-09-08] MEDS: Dexamethasone IV* 4 MG/ML 1 ML (4 MG) IV SLOW PU SCH ×3 (05:46→21:18)
[2018-09-08] MEDS: Insulin LISPRO* 1 UNITS UNIT SUBCUT SCH ×4 (08:41→21:35)
[2018-09-08] MEDS: Losartan TAB* 25 MG PO SCH (08:43)
[2018-09-08] MEDS: metFORMIN* 500 MG TAB PO SCH ×2 (08:43→17:56)
[2018-09-08] MEDS: levETIRAcetam TAB* 500 MG PO SCH (08:43)
[2018-09-08] MEDS: Ciprofloxacin TAB* 250 MG PO SCH ×2 (08:43→21:19)
[2018-09-08] MEDS: Pantoprazole TAB * 40 MG TAB PO SCH (08:43)
[2018-09-08] MEDS: amLODIPine TAB* 5 MG PO SCH (08:43)
[2018-09-08] MEDS: CMC:Fenofibrate(NF) 145 MG TAB PO SCH (08:44)
[2018-09-08] MEDS: Hydrochlorothiazide TAB* 25 MG PO SCH (08:44)
[2018-09-08] MEDS: Metoprolol Tartrate TAB* 100 MG TAB PO SCH ×2 (08:44→21:21)
[2018-09-08] MEDS: cloNIDine TAB* 0.1 MG PO SCH ×2 (08:44→21:20)
[2018-09-08] MEDS: LORazepam TAB(*) 0.5 MG PO PRN ×2 (09:18→18:24)
[2018-09-08] MEDS: oxyCODONE TAB* 5 MG TAB PO PRN ×2 (10:24→18:24)
[2018-09-08] MEDS: Enoxaparin(*) 40 MG/0.4 ML SYR SUBCUT SCH (10:24)
[2018-09-08] MEDS: Lidocaine PATCH 5%* 1 PATCH TRANSDERM SCH (21:17)
[2018-09-08] MEDS: Atorvastatin* 10 MG TAB PO SCH (21:21)
[2018-09-09] MEDS: Morphine INJ* 2 MG/ML 1 ML SYRINGE (TWO MG - NEW SYRINGE VERSION) IV PRN ×4 (05:15→22:27)
[2018-09-09] MEDS: Dexamethasone IV* 4 MG/ML 1 ML (4 MG) IV SLOW PU SCH ×3 (05:15→22:28)
[2018-09-09] MEDS: oxyCODONE TAB* 5 MG TAB PO PRN (07:44)
[2018-09-09] MEDS: Losartan TAB* 25 MG PO SCH (07:44)
[2018-09-09] MEDS: Metoprolol Tartrate TAB* 100 MG TAB PO SCH ×2 (07:45→22:30)
[2018-09-09] MEDS: amLODIPine TAB* 5 MG PO SCH (07:45)
[2018-09-09] MEDS: metFORMIN* 500 MG TAB PO SCH ×2 (07:45→18:41)
[2018-09-09] MEDS: Pantoprazole TAB * 40 MG TAB PO SCH (07:45)
[2018-09-09] MEDS: cloNIDine TAB* 0.1 MG PO SCH ×2 (07:45→22:29)
[2018-09-09] MEDS: Hydrochlorothiazide TAB* 25 MG PO SCH (07:45)
[2018-09-09] MEDS: levETIRAcetam TAB* 500 MG PO SCH (07:46)
[2018-09-09] MEDS: Ciprofloxacin TAB* 250 MG PO SCH ×2 (07:47→22:30)
[2018-09-09] MEDS: CMC:Fenofibrate(NF) 145 MG TAB PO SCH (07:47)
[2018-09-09] MEDS: Insulin LISPRO* 1 UNITS UNIT SUBCUT SCH ×4 (07:56→22:43)
[2018-09-09] MEDS: LORazepam TAB(*) 0.5 MG PO PRN (09:54)
[2018-09-09] MEDS: glipiZIDE TAB* 5 MG PO SCH (12:37)
[2018-09-09] MEDS: Enoxaparin(*) 40 MG/0.4 ML SYR SUBCUT SCH (12:37)
[2018-09-09] MEDS: Atorvastatin* 10 MG TAB PO SCH (22:29)
[2018-09-09] MEDS: Lidocaine PATCH 5%* 1 PATCH TRANSDERM SCH (22:34)
[2018-09-10] MEDS: Dexamethasone IV* 4 MG/ML 1 ML (4 MG) IV SLOW PU SCH ×3 (06:51→22:29)
[2018-09-10] MEDS: Insulin LISPRO* 1 UNITS UNIT SUBCUT SCH ×4 (08:38→22:38)
[2018-09-10] MEDS: oxyCODONE TAB* 5 MG TAB PO PRN ×2 (08:39→19:58)
[2018-09-10] MEDS: levETIRAcetam TAB* 500 MG PO SCH (08:39)
[2018-09-10] MEDS: amLODIPine TAB* 5 MG PO SCH (08:40)
[2018-09-10] MEDS: Pantoprazole TAB * 40 MG TAB PO SCH (08:40)
[2018-09-10] MEDS: Metoprolol Tartrate TAB* 100 MG TAB PO SCH ×2 (08:40→19:58)
[2018-09-10] MEDS: cloNIDine TAB* 0.1 MG PO SCH ×2 (08:40→19:59)
[2018-09-10] MEDS: Losartan TAB* 25 MG PO SCH (08:40)
[2018-09-10] MEDS: Hydrochlorothiazide TAB* 25 MG PO SCH (08:40)
[2018-09-10] MEDS: metFORMIN* 500 MG TAB PO SCH ×2 (08:40→17:01)
[2018-09-10] MEDS: Ciprofloxacin TAB* 250 MG PO SCH ×2 (08:40→19:59)
[2018-09-10] MEDS: glipiZIDE TAB* 5 MG PO SCH (08:40)
[2018-09-10] MEDS: CMC:Fenofibrate(NF) 145 MG TAB PO SCH (08:51)
--- NOTE | 2018-09-10 09:47 | PN ---
Progress Note - Progress Note Date of Service: 09/10/18 SOAP: Subjective: []Comfortable today. Does not complain of pain. He is eating well but complaint of dehydration. He is having bowl movements. Breathing is fine. Amlodipine Besylate (Norvasc Tab*) 10 mg PO QAM [facility] Last Admin: 09/10/18 08:40 Dose: 10 mg Atorvastatin Calcium (Lipitor*) 20 mg PO BEDTIME [facility] Last Admin: 09/09/18 22:29 Dose: 20 mg Ciprofloxacin (Cipro Tab*) 250 mg PO Q12HR [facility]; Protocol Last Admin: 09/10/18 08:40 Dose: 250 mg Clonidine HCl (Catapres Tab*) 0.2 mg PO BID [facility] Last Admin: 09/10/18 08:40 Dose: 0.2 mg Dexamethasone Sodium Phosphate (Decadron Iv*) 8 mg IV SLOW PU Q8HR [facility] Last Admin: 09/10/18 06:51 Dose: 8 mg Dextrose (Dextrose 50% Vial 50 Ml*) 25 ml IV PUSH .FOR FS < 60 - SS PRN PRN Reason: FS < 60 Enoxaparin Sodium (Lovenox(*)) 40 mg SUBCUT Q24H [facility] Last Admin: 09/09/18 12:37 Dose: 40 mg Fenofibrate (Tricor(Nf)) 145 mg PO QAM [facility]; Protocol Last Admin: 09/10/18 08:51 Dose: 145 mg Glipizide (Glucotrol Tab*) 5 mg PO DAILY [facility] Last Admin: 09/10/18 08:40 Dose: 5 mg Hydrochlorothiazide (Hydrodiuril Tab*) 25 mg PO QAM [facility] Last Admin: 09/10/18 08:40 Dose: 25 mg Insulin Human Lispro (Humalog*) 0 units SUBCUT ACHS [facility]; Protocol Last Admin: 09/10/18 08:38 Dose: 6 units Levetiracetam (Keppra Tab*) 750 mg PO DAILY [facility] Last Admin: 09/10/18 08:39 Dose: 750 mg Lidocaine (Lidoderm 5% Patch*) 1 patch TRANSDERM BEDTIME [facility] Last Admin: 09/09/18 22:34 Dose: Not Given Lorazepam (Ativan Tab(*)) 0.5 mg PO Q6H PRN PRN Reason: AGITATION Last Admin: 09/09/18 09:54 Dose: 0.5 mg Losartan Potassium (Cozaar Tab*) 100 mg PO QAM [facility] Last Admin: 09/10/18 08:40 Dose: 100 mg Metformin HCl (Glucophage*) 1,000 mg PO BID WITH MEALS [facility] Last Admin: 09/10/18 08:40 Dose: 1,000 mg Metoprolol Tartrate (Lopressor Tab*) 100 mg PO BID [facility] Last Admin: 09/10/18 08:40 Dose: 100 mg Morphine Sulfate (Morphine Inj (Syringe))*) 2 mg IV Q3H PRN PRN Reason: PAIN - SEVERE Oxycodone HCl (Roxycodone Tab*) 5 mg PO Q3H PRN PRN Reason: PAIN Last Admin: 09/10/18 08:39 Dose: 5 mg Pantoprazole Sodium (Protonix Tab*) 40 mg PO QAM [facility]; Protocol Last Admin: 09/10/18 08:40 Dose: 40 mg Objective: [] Vital Signs Temp Pulse Resp BP Pulse Ox 97.2 F 57 18 138/74 99 09/10/18 03:16 09/10/18 03:16 09/10/18 08:39 09/10/18 03:16 09/10/18 03:16 HEENT: OM dry, no lesions CTA RRR S1S2 obese, NT Weakness on R side sitting in bed and did not have walk AAOx 3 but difficulty holding thoughts, constructing conversation. Assessment: []63 year old metastatic NSCLC with multiple brain lesions and carcinomatosis. Planning to start palliative WBR today x 10 fractions. Plan: []1. He has good PS but significant neurologic compromise, agree with WBR, 2. HTN. continue current medication. 3. Cholesterol, continue Fenofibrate to control TG on steriods but hold Lipitor 4. BS controlled on current medication. Continue ISS 5. He is DNR and likely hospice after WBR
[2018-09-10] MEDS: Morphine INJ* 2 MG/ML 1 ML SYRINGE (TWO MG - NEW SYRINGE VERSION) IV PRN (12:10)
[2018-09-10] MEDS: Enoxaparin(*) 40 MG/0.4 ML SYR SUBCUT SCH (12:12)
[2018-09-10] MEDS: LORazepam TAB(*) 0.5 MG PO PRN (14:11)
[2018-09-10] MEDS: Lidocaine PATCH 5%* 1 PATCH TRANSDERM SCH (19:43)
[2018-09-11] MEDS: Dexamethasone IV* 4 MG/ML 1 ML (4 MG) IV SLOW PU SCH ×2 (06:04→13:53)
[2018-09-11] MEDS: oxyCODONE TAB* 5 MG TAB PO PRN ×2 (06:16→19:18)
[2018-09-11] MEDS: Losartan TAB* 25 MG PO SCH (08:41)
[2018-09-11] MEDS: cloNIDine TAB* 0.1 MG PO SCH ×2 (08:41→21:07)
[2018-09-11] MEDS: Pantoprazole TAB * 40 MG TAB PO SCH (08:42)
[2018-09-11] MEDS: glipiZIDE TAB* 5 MG PO SCH (08:42)
[2018-09-11] MEDS: Metoprolol Tartrate TAB* 100 MG TAB PO SCH ×2 (08:42→21:09)
[2018-09-11] MEDS: Hydrochlorothiazide TAB* 25 MG PO SCH (08:42)
[2018-09-11] MEDS: Ciprofloxacin TAB* 250 MG PO SCH ×2 (08:42→21:10)
[2018-09-11] MEDS: metFORMIN* 500 MG TAB PO SCH ×2 (08:42→17:25)
[2018-09-11] MEDS: amLODIPine TAB* 5 MG PO SCH (08:42)
[2018-09-11] MEDS: CMC:Fenofibrate(NF) 145 MG TAB PO SCH (08:43)
[2018-09-11] MEDS: Insulin LISPRO* 1 UNITS UNIT SUBCUT SCH ×4 (08:43→21:11)
[2018-09-11] MEDS: levETIRAcetam TAB* 500 MG PO SCH (08:44)
[2018-09-11] MEDS: Morphine INJ* 2 MG/ML 1 ML SYRINGE (TWO MG - NEW SYRINGE VERSION) IV PRN ×3 (08:56→17:39)
[2018-09-11 10:11] LABS: Hematocrit 38 % (42-52); Hemoglobin 13.3 g/dL (14.0-18.0); Mean Corpuscular HGB Conc 35 g/dL (31-36); Mean Corpuscular Hemoglobin 35 pg (27-31); Mean Corpuscular Volume 99 fL (80-94); Mean Platelet Volume 7.9 fL (7.4-10.4); Platelet Count 151 10^3/uL (150-450); Red Blood Count 3.77 10^6 /uL (4.18-5.48); Red Cell Distribution Width 16 % (10-15); White Blood Count 13.8 10^3/uL (3.5-10.8)
[2018-09-11 10:31] LABS: Albumin 3.5 g/dL (3.2-5.2); Albumin/Globulin Ratio 1.2 (1-3); BUN/Creatinine Ratio 53.1 (8-20); Calcium 10.2 mg/dL (8.6-10.3); EGFR African American 207.3 (>60); EGFR Non-African American 171.4 (>60); Globulin 2.9 g/dL (2-4); Potassium 4.2 mmol/L (3.5-5.0); Total Bilirubin 0.5 mg/dL (0.2-1.0); Total Protein 6.4 g/dL (6.4-8.9)
[2018-09-11] MEDS: Enoxaparin(*) 40 MG/0.4 ML SYR SUBCUT SCH (11:53)
[2018-09-11] MEDS: Dexamethasone TAB* 4 MG PO SCH (21:09)
[2018-09-11] MEDS: Lidocaine PATCH 5%* 1 PATCH TRANSDERM SCH (21:16)
[2018-09-12] MEDS: Morphine INJ* 2 MG/ML 1 ML SYRINGE (TWO MG - NEW SYRINGE VERSION) IV PRN ×2 (01:19→09:18)
[2018-09-12] MEDS: Insulin LISPRO* 1 UNITS UNIT SUBCUT SCH ×4 (09:22→21:38)
[2018-09-12] MEDS: metFORMIN* 500 MG TAB PO SCH ×2 (09:23→17:54)
[2018-09-12] MEDS: amLODIPine TAB* 5 MG PO SCH (09:23)
[2018-09-12] MEDS: Losartan TAB* 25 MG PO SCH (09:25)
[2018-09-12] MEDS: levETIRAcetam TAB* 500 MG PO SCH (09:26)
[2018-09-12] MEDS: Hydrochlorothiazide TAB* 25 MG PO SCH (09:27)
[2018-09-12] MEDS: glipiZIDE TAB* 5 MG PO SCH (09:27)
[2018-09-12] MEDS: Ciprofloxacin TAB* 250 MG PO SCH ×2 (09:28→21:34)
[2018-09-12] MEDS: Pantoprazole TAB * 40 MG TAB PO SCH (09:29)
[2018-09-12] MEDS: Dexamethasone TAB* 4 MG PO SCH ×3 (09:29→21:35)
[2018-09-12] MEDS: Metoprolol Tartrate TAB* 100 MG TAB PO SCH ×2 (09:29→21:35)
[2018-09-12] MEDS: LORazepam TAB(*) 0.5 MG PO PRN (10:07)
[2018-09-12] MEDS: cloNIDine TAB* 0.1 MG PO SCH ×2 (10:07→21:34)
[2018-09-12] MEDS: CMC:Fenofibrate(NF) 145 MG TAB PO SCH (10:11)
[2018-09-12] MEDS: Enoxaparin(*) 40 MG/0.4 ML SYR SUBCUT SCH (11:35)
[2018-09-12] MEDS: Morphine TAB Extended Release (*) 15 MG TAB.ER PO SCH (11:36)
[2018-09-12] MEDS: oxyCODONE TAB* 5 MG TAB PO PRN ×3 (11:36→21:35)
[2018-09-12] MEDS: Lidocaine PATCH 5%* 1 PATCH TRANSDERM SCH (21:40)
[2018-09-13] MEDS: Morphine TAB Extended Release (*) 15 MG TAB.ER PO SCH (00:22)
[2018-09-13 05:17] VITALS: BP 127/77
--- NOTE | 2018-09-13 08:39 | DS ---
- Discharge Summary ADMIT DATE: 09/05/18 DISCHARGE DATE: 09/13/18 DISCHARGE DIAGNOSIS: 1. 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 home with hospice DISCHARGE CONDITION: GUARDED DISCHARGE MEDICATIONS: Home Medications Medication Instructions Recorded Confirmed Type Aspirin [Aspir 81] 81 mg PO QAM 03/24/14 09/05/18 History Esomeprazole(NF) [Nexium(NF)] 40 mg PO QAM 03/24/14 09/05/18 History Fenofibrate(NF) [Tricor(NF)] 145 mg PO QAM 03/24/14 09/05/18 History Hydrochlorothiazide TAB* 25 mg PO QAM 03/24/14 09/05/18 History [Hydrodiuril TAB*] Metoprolol Tartrate TAB* 100 mg PO BID 03/24/14 09/05/18 History [Lopressor TAB*] Simvastatin TAB(NF) [Zocor 20 MG 20 mg PO BEDTIME 03/24/14 09/05/18 History (NF)] metFORMIN* [Glucophage 500 MG TAB 500 mg PO BID 03/24/14 09/05/18 History *] Lidocaine PATCH 5%* [Lidoderm 5% 1 patch TRANSDERM BEDTIME 03/12/15 09/05/18 History Patch*] Acetaminophen [Tylenol Arthritis] 1 tab PO ONCE PRN 11/20/17 09/05/18 History Amlodipine Besylate [Norvasc 10 mg 10 mg PO QAM 11/20/17 09/05/18 History tab] Amoxicillin PO (*) [Amoxicillin 500 mg PO TID 11/20/17 09/05/18 History 500 MG CAP*] Losartan Potassium 100 mg PO QAM 11/20/17 09/05/18 History [place]-3 Fatty Acids/Fish Oil 1 cap PO BID 11/20/17 09/05/18 History [[place]-3 1,000 mg Softgel] cloNIDine HCl [Catapres 0.1 MG TAB] 2 tab PO BID 11/20/17 09/05/18 History Spironolactone 50 mg PO DAILY 11/22/17 09/05/18 History Morphine Sulfate 15 mg PO DAILY PRN #5 tablet MDD 12/11/17 09/05/18 Rx 15mg Morphine Sulfate 15 mg PO DAILY PRN #30 tablet MDD 12/22/17 09/05/18 Rx 1 tablet Dexamethasone TAB* [Decadron TAB*] 1 mg PO DAILY 09/05/18 09/05/18 History Oxycodone HCl 5 mg PO Q3H PRN 09/05/18 09/05/18 History levETIRAcetam [Levetiracetam] 750 mg PO DAILY 09/05/18 09/05/18 History Dexamethasone TAB* [Decadron TAB*] 8 mg PO TID #90 tab 09/13/18 Rx LORazepam TAB(*) [Ativan 0.5 MG 0.5 mg PO Q6H PRN #30 tab MDD 3 09/13/18 Rx TAB (*)] Morphine TAB Extended Rel(*) [Ms 15 mg PO Q12H #30 tab.er MDD 30 09/13/18 Rx Contin(*)] metFORMIN* [Glucophage 500 MG TAB 1,000 mg PO BID WITH MEALS #60 tab 09/13/18 Rx *] oxyCODONE TAB* [Roxycodone TAB 5 5 mg PO Q3H PRN #60 tab MDD 40 09/13/18 Rx mg*] DISCHARGE FOLLOW UP: NONE--HOME WITH HOSPICE APPROPRIATE HOSPITAL COURSE: 63 yo M w PMH of stage III NSCLC with recent diagnosis of metastatic disease and previous solitary brain met sp SBRT, now presenting with increased FRAME FEEDER disease and leptomeningeal carcinomatosis. He was admitted with AMS and given high dose steroids. Given his progressive disease he opted for WBRT and hospice. In discussing with patient and today, they do not want to complete WBRT but would rather go home with hospice today given limited prognosis. He will be discharged with [facility] to enroll him later this am. His pain was adequately controlled with ER morphine and short acting oxycodone.
[2018-09-13] MEDS: Insulin LISPRO* 1 UNITS UNIT SUBCUT SCH (08:57)
[2018-09-13] MEDS: Losartan TAB* 25 MG PO SCH (08:58)
[2018-09-13] MEDS: metFORMIN* 500 MG TAB PO SCH (08:58)
[2018-09-13] MEDS: Ciprofloxacin TAB* 250 MG PO SCH (08:58)
[2018-09-13] MEDS: Metoprolol Tartrate TAB* 100 MG TAB PO SCH (08:58)
[2018-09-13] MEDS: Hydrochlorothiazide TAB* 25 MG PO SCH (08:59)
[2018-09-13] MEDS: levETIRAcetam TAB* 500 MG PO SCH (08:59)
[2018-09-13] MEDS: Dexamethasone TAB* 4 MG PO SCH (08:59)
[2018-09-13] MEDS: glipiZIDE TAB* 5 MG PO SCH (09:00)
[2018-09-13] MEDS: Pantoprazole TAB * 40 MG TAB PO SCH (09:00)
[2018-09-13] MEDS: amLODIPine TAB* 5 MG PO SCH (09:00)
[2018-09-13] MEDS: CMC:Fenofibrate(NF) 145 MG TAB PO SCH (09:00)
[2018-09-13] MEDS: cloNIDine TAB* 0.1 MG PO SCH (09:00)
== END 2018-09-13 09:30 | disposition hospice, home (50) | DRG 41 ==
LOC: ED 06:19 → MED 10:35 → OBSVTOIN 09-06 09:00
PROVIDERS: ADMIT Internal Medicine Hematology & Oncology; ATTEND Internal Medicine Hematology & Oncology
PROC: D0Y07ZZ Contact Radiation of Brain (ICD-10-PCS; 2018-09-06)
PROC: 009U3ZX Drainage of Spinal Canal, Percutaneous Approach, Diagnostic (ICD-10-PCS; principal; 2018-09-10)
DX: C79.32 Secondary malignant neoplasm of cerebral meninges (principal); G93.6 Cerebral edema; G03.8 Meningitis due to other specified causes; C70.1 Malignant neoplasm of spinal meninges; C34.90 Malignant neoplasm of unspecified part of unspecified bronchus or lung; C79.51 Secondary malignant neoplasm of bone; Z66 Do not resuscitate; E86.0 Dehydration; I10 Essential (primary) hypertension; E78.00 Pure hypercholesterolemia, unspecified; I25.10 Atherosclerotic heart disease of native coronary artery without angina pectoris; G47.30 Sleep apnea, unspecified; K21.9 Gastro-esophageal reflux disease without esophagitis; M19.042 Primary osteoarthritis, left hand; M19.041 Primary osteoarthritis, right hand; M47.9 Spondylosis, unspecified; E11.36 Type 2 diabetes mellitus with diabetic cataract; G47.33 Obstructive sleep apnea (adult) (pediatric); G89.29 Other chronic pain; M54.9 Dorsalgia, unspecified; Z80.3 Family history of malignant neoplasm of breast; Z87.01 Personal history of pneumonia (recurrent); Z85.51 Personal history of malignant neoplasm of bladder; Z98.42 Cataract extraction status, left eye; Z98.41 Cataract extraction status, right eye; Z85.828 Personal history of other malignant neoplasm of skin; Z56.0 Unemployment, unspecified; Z72.89 Other problems related to lifestyle; Z87.891 Personal history of nicotine dependence; E11.65 Type 2 diabetes mellitus with hyperglycemia; Z79.82 Long term (current) use of aspirin; Z79.84 Long term (current) use of oral hypoglycemic drugs; Z79.891 Long term (current) use of opiate analgesic
CPT/HCPCS: 36415; 70450; 70553; 71046; 77014; 77280; 77290; 77307; 77334; 77387; 77412; 80053; 81003; 81015; 82945; 82947; 83605; 84157; 84484; 85025; 85027; 85610; 87077; 87086; 87186; 88112; 88341; 88342; 89051; 99223; 99232; 99239; 99284; A9270-GY; A9579; G0378; J1100; J1650; J2270; J8540